=== PATIENT | female | born 1975 | race Caucasian/White ===

== ENCOUNTER 2019-06-27 09:00 | Outpatient (RCR) | payer OTHER, SELFPAY ==
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
--- NOTE | 2019-05-16 09:30 | PCPTNOTE ---
Pt no showed no call for today's appointment. Called and left a reminder message for next weeks appointment.
--- NOTE | 2019-06-27 16:35 | PTOPEVAL ---
PHYSICAL THERAPY RE-EVALUATION and UPDATED PLAN OF CARE Thank you for referring Franci to [facility]. She has not fully met goals set. Would like to continue to follow her in PT 1x/wk x 6 wks. Please review, sign, date and return this plan of care ROSENDO. I agree with and certify that the following plan of care is medically necessary. Referring Physician Date Admitting Provider: Attending Provider: PHYSICIAN NOT ON STAFF Referring Provider: *PT Outpatient Evaluation Start: 05/02/19 07:49 Freq: Status: Active Protocol: Document 06/27/19 09:00 GABE (Rec: 06/27/19 16:35 GABE [email or web address]) Therapy Assessment Status Assessment Status Assessment Status Re-evaluation Evaluation Information Problem Subjective Information Franci states that she is still Query Text:As Reported By Patient/ having R buttock, thigh pain. Family She feels that she is 50% improved from her initial visit. Kinesiotaping is helping R buttock/SIJ pain - did purchase some for home use . Has not purchased TENS unit as of yet. She has not had intercourse throughout this course of treatment. Pain Assessment Timing of Pain Assessment Timing of Pain Assessment Assessment Pain Scale Pain Scale Used Numeric (1 - 10) Self Report Pain Assessment Right Hip(s) Reported Pain Level 4 Radicular Pain Location R buttock/thigh area Current Pain Intensity 4 Lowest Pain Intensity 2 Greatest Pain Intensity 6 Lower Abdomen Reported Pain Level 0 Current Pain Intensity 0 Lowest Pain Intensity 0 Greatest Pain Intensity 5 Pain Score Pain Score 4,0: Self Report Pelvic Health Evaluation Pelvic Floor Assessment Permission Received for External/ Yes Internal Perineal Exam Internal Perineal Body Palpation marked increased tenderness/ tightness with introitus throughout greatest at 3 o' clock region, levator ani - increased tenderness & tightness - much greater on L side - cranially/caudally at 3 o'clock region and R obturator internus - but general tightness & tenderness present throughout internal palpation Sustained Levator Ani Strength 3+/5 strength-difficult
--- NOTE | 2019-08-01 09:20 | PCPTNOTE ---
PHYSICAL THERAPY DISCHARGE SUMMARY Admitting Provider: Attending Provider: PHYSICIAN NOT ON STAFF Patient:Franci Reyes Date of :1975 Franci has not returned for any further treatments since 06/27/2019, therefore she will be discharged at this time. Patient?s initial visit was on 05/02/2019 and she had a total of 8 visits. More authorized visits were obtained - but she has not returned to PT. The goals have been partially met. Status is as of 06/27/2019 re-evaluation note. Thank you for referring Franci to [facility]. Please review, sign, date and return this discharge summary ROSENDO. I have been updated about Franci's current status and I agree with discharge from the above service at this time. Referring Physician Date
== END 2019-07-31 23:59 | disposition home or self-care (01) ==
LOC: ANHPT 09:00
DX: N80.9 Endometriosis, unspecified (principal); R10.2 Pelvic and perineal pain
CPT/HCPCS: 97014; 97110; 97140; 97162; G0283